=== PATIENT | male | born 2005 | race Two or more races ===

== ENCOUNTER 2024-06-14 20:03 | Emergency (ER) | payer SELFPAY ==
[~2024-06-14] VITALS: Ht 182.9 cm; Wt 97.7 kg
[2024-06-14 20:24] VITALS: TEMP 98.3
[2024-06-14] MEDS: LIDOCAINE 5% TRANSDERMAL PATCH TD ONE (21:59)
[2024-06-14] MEDS: METHOCARBAMOL 500 MG TABLET PO ONE (21:59)
[2024-06-14] MEDS: KETOROLAC TROMETHAMINE 30 MG/ML VIAL IM ONE (21:59)
[2024-06-14] MEDS ORDERED: IBUP-1492 PO (22:37)
[2024-06-14] MEDS ORDERED: METH-812 PO (22:37)
[2024-06-14 23:00] VITALS: BP 131/77; PULSE 77; RESP 15; O2SAT 98
== END 2024-06-14 23:08 | disposition home or self-care (01) ==
LOC: EMS 20:03
DX: S39.012A Strain of muscle, fascia and tendon of lower back, initial encounter (principal); V43.62XA Car passenger injured in collision with other type car in traffic accident, initial encounter; Y93.89 Activity, other specified; Y92.410 Unspecified street and highway as the place of occurrence of the external cause; Y99.8 Other external cause status
CPT/HCPCS: 99283; 96372; J1885